=== PATIENT | male | born 1990 | race Caucasian/White ===

== ENCOUNTER 2020-07-01 17:25 | Emergency (ER) | payer OTHER ==
[2020-07-01] MEDS ORDERED: MAG HYDROX/AL HYDROX/SIMETH 30 ML UDC PO STA (17:48)
[2020-07-01] MEDS ORDERED: LIDOCAINE VISCOUS 2% 15 ML UDC MM STA (17:48)
--- NOTE | 2020-07-01 17:57 | ED Physician Documentation ---
History of Present Illness - Stated complaint Stated Complaint: ABD PX - Chief complaint Chief Complaint: Abd Pain - Additonal information Additional information: 29-year-old male presents to the emergency department with chief complaint of s evere epigastric and chest pain. He reports a history of gastritis and acid reflux and states that it has been flaring over the last week. [place] omeprazole. He stated that it had begun to improve things but then he ate lasagna which made things worse. He denies that he has inspiratory chest pain but feels the pain radiate from his epigastrium up his throat. He denies that he is been having any black or bloody bowel movements. He denies constipation. He has had no fevers. No pertinent past surgical history. The only medication that he takes is omeprazole. Review of Systems Constitutional: reports: Reviewed and negative Eyes: reports: Reviewed and negative Nose: reports: Reviewed and negative Throat: reports: Reviewed and negative Cardiac: reports: Chest pain / pressure (radiating from epigastrium). denies: Palpitations, Pedal edema, Calf pain Respiratory: denies: Dyspnea, Cough, Hemoptysis, Wheezing GI: reports: Abdominal Pain. denies: Abdominal Swelling, Nausea, Vomiting, Constipation, Diarrhea, Hematemesis, Bloody / black stool : denies: Dysuria, Frequency, Hesitancy Skin: denies: Rash, Lesions Musculoskeletal: denies: Neck pain, Back pain Neurologic: denies: Generalized weakness, Focal weakness, Syncope, Seizure PD PAST MEDICAL HISTORY - Present Medications Home Medications: Ambulatory Orders Medication Instructions Recorded Confirmed Mag Hydrox/Aluminum Hyd/Simeth 30 ml PO TID PRN #1 bottle 07/01/20 [Mag-Alum Hydroxide-Simeth Susp] - Allergies Allergies/Adverse Reactions: Allergies Allergy/AdvReac Type Severity Reaction Status Date / Time No Known Drug Allergies Allergy Verified 07/01/20 17:34 PD ED PE EXPANDED - General General: Alert, Well developed/nourished, In distress - HEENT HEENT: Atraumatic, PERRL, Moist mucous membranes, Pharynx normal. No: Phar yngeal erythema - Neck Neck: Supple w/out meningeal sx. No: Adenopathy - Cardiac Cardiac: Regular Rate, Radial strong equal, Femoral strong equal, Cap refill < 2 sec. No: Murmur Present - Respiratory Respiratory: Clear to ausultation arabella. No: Distress, Labored - Abdomen Abdomen: Normal Bowel sounds, Tender to palpation (Tenderness to deep palpation epigastrium negative Galeana's. Negative McBurney's.), Epigastric. No: Rebound, Guarding, Mass - Derm Derm: Normal color. No: Petecchiae, Purpura - Extremities Extremities: Normal - Neuro Neuro: Alert and Oriented X 3, CNII-XII intact, Normal speech - GCS Eye Opening: Spontaneous Motor: Obeys Commands Verbal: Oriented Total: 15 Results - Vitals Vitals: Vital Signs - 24 hr 07/01/20 17:29 Temperature 36.8 C Heart Rate 93 Respiratory 18 Rate Blood Pressure 119/73 O2 Saturation 97 Oxygen O2 Source Room air - EKG (time done) 1727 Rate: Rate (enter#) (89) Rhythm: NSR, Other (Isolated PVC) [place]: Normal Intervals: Normal [place] QRS: Normal Ischemia: Normal ST segments Compare to prior EKG: Old EKG unavailable Computer interpretation: Agree with computer - Labs Labs: Laboratory Tests 07/01/20 07/01/20 07/01/20 17:55 17:55 17:55 WBC 7.7 RBC 4.79 Hgb 15.1 Hct 43.4 MCV 90.6 MCH 31.5 H MCHC 34.8 RDW 11.9 L Plt Count 285 MPV 8.2 Neut # (Auto) 5.4 Lymph # (Auto) 1.6 [place] # (Auto) 0.5 Eos # (Auto) 0.1 Baso # (Auto) 0.1 Absolute Nucleated RBC 0.00 Nucleated RBC % 0.0 Sodium 136 Potassium 3.7 Chloride 105 Carbon Dioxide 23 Anion Gap 8.0 BUN 19 Creatinine 1.0 Estimated GFR (MDRD) 89 Glucose 101 H Calcium 8.9 Total Bilirubin 0.8 AST 54 H ALT 58 Alkaline Phosphatase 79 Troponin I High Sens 3.2 Total Protein 7.7 Albumin 4.6 Globulin 3.1 Albumin/Globulin Ratio 1.5 Lipase 31 - Rads (name of study) CXR Radiology: Final report received (No acute cardiopulmonary pathology) PD MEDICAL DECISION MAKING - ED course Complexity details: reviewed results, re-evaluated patient, considered differential, d/w patient ED course: 29-year-old male presents to the emergency department for evaluation of epigastric abdominal pain that radiates up his throat. He does report a personal history of gastritis and GERD. He does not take NSAID medication and denies alcohol or tobacco use. Denies melena or hematochezia He was [place] physician recently for similar and started on omeprazole. He reports he has been taking it but did eat lasagna which made things worse. His EKG is evaluated and nonischemic. High-sensitivity troponin is negative. CXR unremarkable His other labs are reviewed in full. There are no significant abnormalities sparing a minor elevation however withoutRight upper quadrant pain my suspicion for a bilirubin elevation or acute cholecystitis is exceedingly low. We did give this gentleman milk of magnesia and viscous lidocaine on presentation to the ED and within a minute or 2 the pain had begun to subside. Patient is stable for discharge home. I will recommend that he continue the omeprazole twice daily. I will also recommend milk of magnesia for acute indigestion. He is to see [place] physician in the upcoming week. This gentleman should be referred for EGD to further evaluate for peptic ulcer disease. Departure - Departure Disposition: 01 Home, Self Care Clinical Impression: Epigastric abdominal pain Condition: Stable Record reviewed to determine appropriate education?: Yes Instructions: ED Gastritis, ED PUD Vs Gastritis Prescriptions: Mag Hydrox/Aluminum Hyd/Simeth [Mag-Alum Hydroxide-Simeth Susp] 30 ml PO TID PRN #1 bottle PRN Reason: Pain Comments: Thee your labs today are essentially normal. Your chest x-ray and EKG are normal. You are developing gastritis or stomach inflammation. Please continue to take the omeprazole previously prescribed by the [place] physician. I would like you to also take Maalox as needed for acute pain. You should be tested for a bacteria called H. pylori. In addition your base physician should make referral for you to be seen by isotope technologist to have an EGD or scoping done of your esophagus and stomach to make sure that there are no ulcers forming. If you develop suddenly severe pain, have black or bloody stools or vomit any b lood please return to the emergency department
[2020-07-01 18:01] LABS: BASOPHILS # (AUTO) 0.1 10^3/uL (0.0-0.1); BASOPHILS % (AUTO) 0.8 %; EOSINOPHILS # (AUTO) 0.1 10^3/uL (0.0-0.7); EOSINOPHILS % (AUTO) 1.3 %; HGB - HEMOGLOBIN 15.1 g/dL (14.0-18.0); LYMPHOCYTES # (AUTO) 1.6 10^3/uL (1.5-3.5); LYMPHOCYTES % (AUTO) 20.8 %; MEAN CORPUSCULAR HEMOGLOBIN 31.5 pg (27.0-31.0); MEAN CORPUSCULAR HGB CONC 34.8 g/dL (32.0-36.0); MEAN CORPUSCULAR VOLUME 90.6 fL (80.0-94.0); MEAN PLATELET VOLUME 8.2 fL (7.4-11.4); MONOCYTES # (AUTO) 0.5 10^3/uL (0.0-1.0); NEUTROPHILS # (AUTO) 5.4 10^3/uL (1.5-6.6); NEUTROPHILS % (AUTO) 69.7 %; PLT - PLATELET COUNT 285 10^3/uL (130-450); RED BLOOD COUNT 4.79 10^6/uL (4.70-6.10); RED CELL DISTRIBUTION WIDTH 11.9 % (12.0-15.0); WHITE BLOOD COUNT 7.7 x10^3/uL (4.8-10.8)
--- NOTE | 2020-07-01 18:16 | XRAY Report ---
PROCEDURE: Chest 1 View X-Ray INDICATIONS: Chest Pain TECHNIQUE: One view of the chest was acquired. COMPARISON: None. FINDINGS: Surgical changes and devices: None. Lungs and pleura: No pleural effusions or pneumothorax. Lungs are clear. Mediastinum: Mediastinal contours appear normal. Heart size is normal. Bones and chest wall: No suspicious bony lesions. Overlying soft tissues appear unremarkable. IMPRESSION: No acute cardiopulmonary abnormality. Reviewed by: Gil Weathers MD on 07/01/2020 5:15 PM [facility]IL[facility] Approved by: Gil Weathers MD on 07/01/2020 5:15 PM [facility] Station ID: [id number]
[2020-07-01 18:17] LABS: ALBUMIN 4.6 g/dL (3.2-5.5); ALBUMIN/GLOBULIN RATIO 1.5 (1.0-2.2); BILIRUBIN,TOTAL 0.8 mg/dL (0.2-1.0); CALCIUM 8.9 mg/dL (8.5-10.3); TOTAL PROTEIN 7.7 g/dL (6.7-8.2)
[2020-07-01 19:04] VITALS: BP 121/89
== END 2020-07-01 19:04 | disposition home or self-care (01) ==
LOC: ED 17:25
DX: K29.70 Gastritis, unspecified, without bleeding (principal); K21.9 Gastro-esophageal reflux disease without esophagitis; I49.3 Ventricular premature depolarization
CPT/HCPCS: 36415; 71045; 80053; 83690; 84484; 85025; 93005; 99284; A9270

== ENCOUNTER 2022-12-05 07:11 | Outpatient (CLI) | payer OTHER ==
[2022-12-05 12:18] LABS: BASOPHILS # (AUTO) 0.1 10^3/uL (0.0-0.1); BASOPHILS % (AUTO) 1.1 %; EOSINOPHILS # (AUTO) 0.2 10^3/uL (0.0-0.7); EOSINOPHILS % (AUTO) 4.8 %; HCT - HEMATOCRIT 41.1 % (42.0-52.0); HGB - HEMOGLOBIN 13.5 g/dL (14.0-18.0); LYMPHOCYTES # (AUTO) 1.6 10^3/uL (1.5-3.5); LYMPHOCYTES % (AUTO) 35.3 %; MEAN CORPUSCULAR HEMOGLOBIN 30.3 pg (27.0-31.0); MEAN CORPUSCULAR HGB CONC 32.8 g/dL (32.0-36.0); MEAN CORPUSCULAR VOLUME 92.2 fL (80.0-94.0); MEAN PLATELET VOLUME 8.6 fL (7.4-11.4); MONOCYTES # (AUTO) 0.4 10^3/uL (0.0-1.0); MONOCYTES % (AUTO) 9.6 %; NEUTROPHILS # (AUTO) 2.2 10^3/uL (1.5-6.6); NEUTROPHILS % (AUTO) 48.8 %; PLT - PLATELET COUNT 281 10^3/uL (130-450); RED BLOOD COUNT 4.46 10^6/uL (4.70-6.10); RED CELL DISTRIBUTION WIDTH 12.6 % (12.0-15.0); WHITE BLOOD COUNT 4.6 x10^3/uL (4.8-10.8)
[2022-12-05 13:18] LABS: THYROID STIMULATING HORMONE 2.28 uIU/mL (0.34-5.60)
[2022-12-05 17:48] LABS: ALBUMIN 3.9 g/dL (3.2-5.5); ALBUMIN/GLOBULIN RATIO 1.3 (1.0-2.2); ALKALINE PHOSPHATASE 54 IU/L (42-121); ALT ALANINE AMINOTRANSFERASE 18 IU/L (10-60); AST ASPARTATE AMINOTRANSFERASE 18 IU/L (10-42); BILIRUBIN,TOTAL 0.7 mg/dL (0.2-1.0); BUN - BLOOD UREA NITROGEN 19 mg/dL (6-20); CALCIUM 9.9 mg/dL (8.5-10.3); CARBON DIOXIDE - CO2 27 mmol/L (21-32); CHLORIDE 104 mmol/L (101-111); CHOLESTEROL 161 mg/dL; CREATININE 0.9 mg/dL (0.6-1.2); GFR - MDRD 98 (>89); GLUCOSE 93 mg/dL (70-100); HDL CHOLESTEROL 40 mg/dL; LDL CHOLESTEROL,CALCULATED 107 mg/dL; LDL/HDL RATIO 2.7 (<3.6); POTASSIUM 4.3 mmol/L (3.5-5.0); SODIUM 141 mmol/L (135-145); TOTAL PROTEIN 6.8 g/dL (6.7-8.2); TRIGLYCERIDES 70 mg/dL; VLDL CHOLESTEROL 14 mg/dL
== END 2022-12-05 07:12 | disposition home or self-care (01) ==
LOC: LAB.N 07:11
PROVIDERS: ATTEND Nurse Practitioner
DX: K58.0 Irritable bowel syndrome with diarrhea (principal); G43.909 Migraine, unspecified, not intractable, without status migrainosus; Z13.220 Encounter for screening for lipoid disorders; F41.9 Anxiety disorder, unspecified; F32.A Depression, unspecified
CPT/HCPCS: 36415; 80053; 80061; 82607; 83721; 84443; 85025

== ENCOUNTER 2023-01-02 07:05 | Outpatient (CLI) | payer OTHER ==
--- NOTE | 2023-01-02 08:30 | MRI Report ---
PROCEDURE: LUMBAR SPINE WO INDICATIONS: LUMBAR BACK PAIN W/RADICULOPATHY TECHNIQUE: Noncontrast sagittal T1 spin echo and T2 fast echo, sagittal STIR, axial T1 and T2 fast spin echo thr ough the lumbar spine. In cases with scoliosis, additional coronal T2 fast spin echo may be performe d. COMPARISON: None. FINDINGS: Image quality: Excellent. Alignment and Curvature: There is normal bony alignment. Bone Marrow: Marrow is of normal overall signal. No acute vertebral body compression fractures. Spinal Cord: Conus medullaris terminates at the T12-L1 level. Visualized cord demonstrates normal s ignal and size. Paraspinous Soft Tissues: No paravertebral masses. T12-L1: Normal in appearance. L1-L2: Normal in appearance. L2-L3: Normal in appearance. L3-L4: Normal in appearance. L4-L5: Posterior annulus tear versus disc bulge. Disc material abuts the bilateral L5 nerve roots i n the lateral recesses. No central canal stenosis. Mild bilateral foraminal stenosis. L5-S1: Diffuse disc bulge. There is a focal right posterior disc protrusion which directly exerts m ass effect on the right S1 nerve root with significant right S1 nerve root impingement in the lateral recess. No central canal stenosis. No foraminal stenosis. IMPRESSION: 1. There is a focal right posterior disc protrusion directly onto the right S1 nerve root at L5-S1 in the right lateral recess, with significant right S1 nerve impingement. Right sciatica is likely. 2. There is annulus tear plus disc bulge at L4-L5. Reviewed by: Raul Rodríguez MD on 01/02/2023 8:29 AM PST Approved by: Raul Rodríguez MD on 01/02/2023 8:29 AM PST Station ID: [id number]
== END 2023-01-02 07:06 | disposition home or self-care (01) ==
LOC: DI 07:05
PROVIDERS: ATTEND Internal Medicine
DX: M51.17 Intervertebral disc disorders with radiculopathy, lumbosacral region (principal); M51.16 Intervertebral disc disorders with radiculopathy, lumbar region

== ENCOUNTER 2023-01-02 07:06 | Outpatient (CLI) | payer OTHER ==
--- NOTE | 2023-01-02 13:53 | XRAY Report ---
PROCEDURE: Cervical Spine 2 View INDICATIONS: NECK PAIN, ACUTE,IMPINGEMENT SYNDROME OF RIGHT CEASAR TECHNIQUE: 3 view(s) of the cervical spine were acquired. COMPARISON: None. FINDINGS: Bones: No fractures or dislocations to the C7-T1 level. The lateral masses of C1 appear intact on t he odontoid view. No suspicious bony lesions. There is overall straightening of normal cervical cur vature. Mild disc space narrowing at C3-4. Soft tissues: No prevertebral soft tissue swelling. IMPRESSION: Cervical straightening with mild disc space narrowing at C3-4. Reviewed by: Kandice Rivera MD on 01/02/2023 1:52 PM PST Approved by: Kandice Rivera MD on 01/02/2023 1:52 PM PST Station ID: [id number]
--- NOTE | 2023-01-02 13:53 | XRAY Report ---
PROCEDURE: Knee 2 View RT INDICATIONS: RIGHT KNEE PAIN TECHNIQUE: 2 views of the right knee(s) were acquired. COMPARISON: None. FINDINGS: Bones: No fractures or dislocations. No suspicious bony lesions. Soft tissues: Mild joint effusion. No suspicious soft tissue calcifications. IMPRESSION: Mild effusion. No visualized acute fracture or dislocation. However, occult injury canno t be excluded. Recommend short interval imaging follow-up in 7-10 days as clinically indicated for ad ditional evaluation. Reviewed by: Kandice Rivera MD on 01/02/2023 1:52 PM PST Approved by: Kandice Rivera MD on 01/02/2023 1:52 PM PST Station ID: [id number]
--- NOTE | 2023-01-02 13:54 | XRAY Report ---
PROCEDURE: Shoulder 3 View RT INDICATIONS: IMPINGEMENT SYNDROME OF RIGHT SHOULDER TECHNIQUE: 3 views of the shoulder were acquired. COMPARISON: None. FINDINGS: Bones: No fractures or dislocations. No suspicious bony lesions. Visualized ribs appear intact. H umeral head is mildly high riding. Soft tissues: No suspicious soft tissue calcifications. IMPRESSION: High riding humeral head which can be seen with rotator cuff pathology. Reviewed by: Kandice Rivera MD on 01/02/2023 1:53 PM [facility] Approved by: Kandice Rivera MD on 01/02/2023 1:53 PM [facility] Station ID: [id number]
== END 2023-01-02 07:07 | disposition home or self-care (01) ==
LOC: DI 07:06
PROVIDERS: ATTEND Internal Medicine
DX: M47.812 Spondylosis without myelopathy or radiculopathy, cervical region (principal); M25.561 Pain in right knee; M25.461 Effusion, right knee; M75.41 Impingement syndrome of right shoulder; M51.17 Intervertebral disc disorders with radiculopathy, lumbosacral region; M51.16 Intervertebral disc disorders with radiculopathy, lumbar region